=== PATIENT | female | born 1990 | race African-American/Black ===

== ENCOUNTER 2024-07-15 16:26 | Emergency (ER) | payer MEDICAID ==
[~2024-07-15] VITALS: Ht 167.6 cm; Wt 106.8 kg
[2024-07-15] MEDS ORDERED: Ketorolac 60 MG/2 ML VIAL IM ONE (17:30)
[2024-07-15] MEDS ORDERED: CLEOCIN HC150 MG/CAP PO (17:46)
[2024-07-15] MEDS ORDERED: NORCO 325 MG-51 TAB PO (17:47)
[2024-07-15 18:06] VITALS: BP 141/106; PULSE 72; TEMP 98.1
== END 2024-07-15 18:06 | disposition home or self-care (01) ==
LOC: COL.ER 16:26
DX: K04.7 Periapical abscess without sinus (principal); Z87.891 Personal history of nicotine dependence; Z88.1 Allergy status to other antibiotic agents
CPT/HCPCS: J1885